=== PATIENT | male | born 1985 | race Caucasian/White ===

== ENCOUNTER 2018-02-27 21:14 | Emergency (ER) | payer OTHER ==
[2018-02-28] MEDS: BACTRIM 160MG/800MG DS TAB PO (00:06)
== END 2018-02-28 00:12 | disposition home or self-care (01) ==
LOC: M ED 02-28 00:12
DX: L03.116 Cellulitis of left lower limb (principal); F32.9 Major depressive disorder, single episode, unspecified
CPT/HCPCS: 99283

== ENCOUNTER 2018-09-16 19:28 | Emergency (ER) | payer OTHER ==
[~2018-09-16] VITALS: Ht 180.3 cm; Wt 86.4 kg
[~2018-09-16 19:28] MED LIST: BACT800T5 PO; WELLTAB38 PO; ZOLO50TA PO
[2018-09-16] MEDS ORDERED: IBUP-1022 PO (21:02)
[2018-09-16 21:23] VITALS: BP 123/75
[2018-09-16] MEDS ORDERED: IBUPROFEN 600 MG TAB PO ONE (21:30)
--- NOTE | 2018-09-16 23:11 | REP ---
RIGHT KNEE, SIX VIEWS: Six views of the right knee are performed and demonstrate no fracture, dislocation or intrinsic bone disease. A rounded benign appearing soft tissue calcification is seen posterior to the proximal tibia. IMPRESSION: No acute fracture or dislocation. Electronically Signed by Isael Taveras MD 09/17/2018 06:49 P
== END 2018-09-16 21:41 | disposition home or self-care (01) ==
LOC: M ED 19:28
DX: S83.411A Sprain of medial collateral ligament of right knee, initial encounter (principal); M23.91 Unspecified internal derangement of right knee; X50.1XXA Overexertion from prolonged static or awkward postures, initial encounter; Y92.9 Unspecified place or not applicable; Y93.9 Activity, unspecified; Y99.9 Unspecified external cause status; Z79.899 Other long term (current) drug therapy